=== PATIENT | female | born 1965 | race African-American/Black ===

== ENCOUNTER 2020-09-13 05:50 | Day surgery (SDC) | payer MEDICAID, SELFPAY ==
[~2020-09-13] VITALS: Ht 157.5 cm; Wt 80.7 kg
[2020-09-13] MEDS ORDERED: GLYCOPYRROLATE 0.2 MG/ML VIAL IJ ONE (07:25)
[2020-09-13] MEDS ORDERED: LR 1,000 ML IV.SOLN IV ONE (07:25)
[2020-09-13] MEDS ORDERED: CEFAZOLIN 2 GM IVPB PREMIX 50 ML IV ONE (07:25)
[2020-09-13] MEDS ORDERED: SEVOFLURANE 15 MIN GAS INH ONE (07:25)
[2020-09-13] MEDS ORDERED: MORPHINE SULFATE 10MG/10ML PF AMP EP ONE (07:25)
[2020-09-13] MEDS ORDERED: MIDAZOLAM HCL 5 MG/5 ML VIAL IVP ONE (07:25)
[2020-09-13] MEDS ORDERED: ONDANSETRON HCL 4 MG/2 ML VIAL IVP ONE (07:25)
[2020-09-13] MEDS ORDERED: WATER FOR IRRIGATION,STERILE 1,000 ML IRRIG.SOLN IR ONE (07:25)
[2020-09-13] MEDS ORDERED: PHENYLEPHRINE HCL 10 MG/ML VIAL (NEOSYNEPHRINE) IV ONE (07:25)
[2020-09-13] MEDS ORDERED: BUPIVACAINE /PF 0.75% 10 ML VIAL INJ ONE (07:25)
[2020-09-13] MEDS ORDERED: ROCURONIUM BROMIDE 10 MG/ML (ZEMURON) IV ONE (07:25)
[2020-09-13] MEDS ORDERED: fentaNYL CITRATE/PF 100 MCG/2 ML AMP IVP ONE (07:25)
[2020-09-13] MEDS ORDERED: NS IRRIG SOLN 1000 ML IR ONE (07:25)
[2020-09-13] MEDS ORDERED: OXYCODONE/ACETAMINOPHEN 5-325 TABLET PO PRN ×2 (07:30)
[2020-09-13] MEDS ORDERED: IBUPROFEN 800 MG TABLET PO PRN (07:30)
[2020-09-13] MEDS ORDERED: KETOROLAC TROMETHAMINE 30 MG VIAL IVP PRN (07:30)
[2020-09-13] MEDS ORDERED: HYDROmorphone 2 MG/ML VIAL IVP PRN (07:30)
[2020-09-13] MEDS ORDERED: ONDANSETRON HCL 4 MG/2 ML VIAL IVP PRN (08:15)
[2020-09-13] MEDS ORDERED: DIPHENHYDRAMINE INJ 50 MG/ML VIAL IVP PRN (08:15)
[2020-09-13] MEDS ORDERED: NALOXONE HCL 0.4 MG/ML AMP (NARCAN) IVP PRN ×2 (08:15)
[2020-09-13] MEDS ORDERED: KETOROLAC TROMETHAMINE 60 MG/2 ML VIAL IM PRN (08:15)
[2020-09-13] MEDS ORDERED: NALBUPHINE HCL 10 MG/ML AMP IVP PRN (08:15)
[2020-09-13] MEDS ORDERED: fentaNYL CITRATE/PF 100 MCG/2 ML AMP IVP PRN ×2 (08:15)
[2020-09-13] MEDS ORDERED: MORPHINE SULFATE 10MG/10ML PF AMP SP SCH (08:15)
[2020-09-13] MEDS ORDERED: ONDANSETRON HCL 4 MG/2 ML VIAL ONE (10:51)
[2020-09-13] MEDS: LR 1,000 ML IV SCH ×4 (11:05→20:34)
--- NOTE | 2020-09-13 11:05 | NUR ---
RECEIVED PATIENT FROM OR VIA BED. DROWSY BUT AROUSABLE TO NAME AND ORIENTED. PATIEMT ON ROOM AIR BREATHING EVEN AND UNLABORED, NO SIGN OF DISTRESS. VITALS SIGNS WNL. IV TO LEFT HAND #20 FLOWING LR TO GRAVITY. BIANCHI IN PLACE WITH SECUREMENT DEVICE IN PLACE FLOWING TO GRAVITY. SCD'S IN PLACE. FOUR SURGICAL INCISION TO ABDOMEN WITH STERI STRIPS IN PLACE. NO BLEEDING NOTED. SAFETY PRECAUTIONS IN PLACE. WILL CONTINUE TO MONITOR.
[2020-09-13 13:10] VITALS: BP_SYST 125
[2020-09-13 16:42] VITALS: BP_SYST 139
--- NOTE | 2020-09-13 17:21 | NUR ---
REMOVED 10ML FROM BALLOON AND REMOVED URINARY CATHETER. PROVIDED PERICARE TO PATIENT
--- NOTE | 2020-09-13 19:00 | NUR ---
PATIENT RESTING IN BED WITH EYES CLOSED ON RROM AIR BREATHING EVEN AND UNLABORED NO SIGN OF DISTRESS. EVENING MEAL AT BEDSIDE. IV LEFT HAND #20 LR AT 125ML/HR. SAFETY PRECAUTIONS IN PLACE ALL NEDS MET THROUGH SHIFT. WILL ENDORSE TO NEXT SHIFT.
[2020-09-13 19:45] VITALS: BP_SYST 123
--- NOTE | 2020-09-13 19:45 | NUR ---
INITIAL NOTE AT INITIAL ASSESSMENT, PATIENT IS RESTING IN BED, STABLE, NO SIGNS OF RESPIRATORY DISTRESS. PATIENT VERBALIZES TOLERABLE PAIN, SHE STATES SHE DOES NOT WANT ANY MEDICATION FOR PAIN OR DISCOMFORT AT THIS TIME. PLAN OF CARE FOR THE EVENING IS COMMUNICATED WITH THE PATIENT. PATIENT DEMONSTRATES CORRECT USAGE OF CALL LIGHT AT THIS TIME. BED IS LOCKED, ALARMED, AND AT THE LOWEST LEVEL. FALL SAFETY EDUCATION PROVIDED. FALL, SAFETY, AND RESPIRATORY PRECAUTIONS WILL BE TAKEN THROUGHOUT THE SHIFT.
[2020-09-13] MEDS: DOCUSATE SODIUM 100 MG CAPSULE PO SCH (20:34)
[2020-09-13] MEDS ORDERED: TEMAZEPAM 15 MG CAPSULE PO PRN (21:00)
--- NOTE | 2020-09-13 21:50 | NUR ---
INCENTIVE SPIROMETER TEACHING PATIENT SUCCESSFULLY DEMONSTRATES CORRECT USAGE OF INCENTIVE SPIROMETER AT THIS TIME. PATIENT IS AVERAGING 1500 ML; PATIENT VERBALIZES EXPERIENCING SOME ABDOMINAL PAIN WHEN USING THE INCENTIVE SPIROMETER. PATIENT VERBALIZES KNOWING TO PRACTICE 10 TIMES AN HOUR WHILE AWAKE. AT THIS TIME, PATIENT IS ON NO OXYGEN SUPPLEMENTATION. ROOM AIR OXYGEN SATURATION IS 94% . WILL CONTINUE TO ENCOURAGE USE OF INCENTIVE SPIROMETER EVERY HOUR PATIENT IS AWAKE.
--- NOTE | 2020-09-13 23:00 | NUR ---
FEET DANGLING PATIENT SITTING UPRIGHT ON SIDE OF BED WITH FEET DANGLING AT THIS TIME PER MD RECOMMENDATION. PATIENT VERBALIZES SOME DISCOMFORT, BUT IS TOLERATING WELL- SHE STATES SHE DOES NOT WANT ANY MEDICATION FOR PAIN OR DISCOMFORT.
--- NOTE | 2020-09-14 00:30 | NUR ---
STRAIGHT CATH PATIENT VERBALIZES SHE IS UNABLE TO URINATE DESPITE BEING ON THE BEDSIDE COMMODE. BLADDER SCAN SHOWS AROUND 450 ML URINE IN BLADDER. STRAIGHT CATH DONE AT THIS TIME PER PRN ORDERS. PATIENT TOLERATED WELL WITH AROUND 400 ML OUTPUT. SHE STATES SHE "FEELS MUCH BETTER" AFTER PROCEDURE.
--- NOTE | 2020-09-14 01:30 | NUR ---
PATIENT ASSISTED TO BEDSIDE COMMODE PATIENT ASSISTED TO BEDSIDE COMMODE AT THIS TIME WITH MINIMAL ASSIST, SHE WAS ABLE TO MAKE A SMALL VOID. PATIENT ASSISTED BACK INTO BED FOR COMFORT. CALL LIGHT PLACED WITHIN REACH. BED IS LOCKED, ALARMED, AND AT THE LOWEST LEVEL.
[2020-09-14 01:36] VITALS: BP_SYST 117
[2020-09-14] MEDS: LR 1,000 ML IV SCH ×2 (06:21→15:30)
--- NOTE | 2020-09-14 06:48 | NUR ---
Nutrition Update Adria Scale 18 noted. Pt admitted for Unspecified Ovarian Cyst Left side Diet: Regular BMI: 32.6 kg/m2 RD to follow per nutrition care standards.
[2020-09-14 06:53] LABS: BASOPHILS % (AUTO) 0.4 % (0.0-2.0); EOSINOPHILS % (AUTO) 0.1 % (0.0-4.0); HEMATOCRIT 39.3 % (36-48); HEMOGLOBIN 12.7 g/dL (12.0-16.0); LYMPHOCYTES # (AUTO) 2.6 K/uL (1.0-5.5); LYMPHOCYTES % (AUTO) 21.8 % (20.5-51.5); MEAN CORPUSCULAR HEMOGLOBIN 30 pg (27-31); MEAN CORPUSCULAR HGB CONC 32 % (32-36); MEAN CORPUSCULAR VOLUME 92 fL (79.0-98.0); MONOCYTES # (AUTO) 1.1 K/uL (0.0-1.0); NEUTROPHILS # (AUTO) 8.1 K/uL (1.8-7.7); NEUTROPHILS % (AUTO) 68.7 % (40.0-70.0); PLATELET COUNT (AUTO) 378 K/uL (130-430); RED BLOOD CELL COUNT(AUTO) 4.27 MIL/uL (4.2-6.2); RED CELL DISTRIBUTION WIDTH 15.1 % (9.0-15.0); WHITE BLOOD COUNT (AUTO) 11.7 K/uL (4.8-10.8)
--- NOTE | 2020-09-14 06:56 | NUR ---
CLOSING NOTE PATIENT SLEPT WELL THROUGHOUT THE SHIFT, SHE VERBALIZED TOLERABLE PAIN DURING THE SHIFT WHICH SHE DID NOT WANT ANY PAIN MEDICATION FOR. AT THIS TIME, SHE STATES SHE IS NOT EXPERIENCING PAIN AT THIS TIME. PATIENT IS RESTING IN BED, STABLE, NO SIGNS OF RESPIRATORY DISTRESS. CALL LIGHT IS WITHIN REACH. BED IS LOCKED, ALARMED, AND AT THE LOWEST LEVEL. FALL, SAFETY, AND RESPIRATORY PRECAUTIONS HAVE BEEN TAKEN THROUGHOUT THE SHIFT. WILL CONTINUE TO MONITOR UNTIL SHIFT REPORT IS GIVEN AT BEDSIDE TO AM NURSE.
[2020-09-14 07:54] VITALS: BP_SYST 129
--- NOTE | 2020-09-14 08:00 | NUR ---
Note Pt resting in bed, aware her breakfast tray on bedside table next to her. Pt states she will eat a little later. No SOB/resp distress or severe abdominal pain/discomfort noted at this time. IV in left hand intact and patent infusing IVF's well. 4 abdominal lap sites with steri strip dressings CDI at this time. Call light within reach. Bed in low position and bed alarm on.
[2020-09-14] MEDS: DOCUSATE SODIUM 100 MG CAPSULE PO SCH (08:22)
[2020-09-14] MEDS: SIMETHICONE 80 MG TAB.CHEW PO PRN ×2 (08:23→13:35)
[2020-09-14 12:00] VITALS: BP_SYST 117
--- NOTE | 2020-09-14 12:10 | NUR ---
Note Pt's IVF's were saline locked and pt ambulated in hallway with RN. Pt unable to pass flatus or burp all shift. Pt was given Mylicon PO medications, still no results at this time. Pt ambulated to restroom to void with standby assist. Call light within reach. Bed in low position and no needs noted at this time.
--- NOTE | 2020-09-14 13:45 | NUR ---
Note Dr Escobar was called and discharge order home received. Pt's status was changed from Inpatient to Outpatient surgery status.
[2020-09-14 15:52] VITALS: BP_SYST 121
[2020-09-14] MEDS ORDERED: PERC10 PO (15:57)
[2020-09-14] MEDS ORDERED: IBUP-1971 PO (15:58)
[2020-09-14] MEDS ORDERED: DOCU-144 PO (16:00)
[2020-09-14 16:03] VITALS: BP_SYST 150
--- NOTE | 2020-09-14 17:50 | NUR ---
Note Pt's IV was dc'd at 1700. Site benign and no swelling/redness/bleeding/drainage noted at this time. Pt was given discharge instructions and prescriptions. Pt was checked on q1' and PRN all shift for needs and care. Pt was maintained with safety precautions all shift. Pt's bed in low position and pt ambulated OOB to restroom independently with steady gait. Pt ambulated in room and hallway to pass flatus - minimal passing of flatus. Pt requested to have dinner here before being discharge home. Pt's 4 lap sites with steri strips CDI all shift. Pt stable. Pt sitting up in bed at this time to eat her dinner. Call light within reach.
--- NOTE | 2020-09-14 18:25 | NUR ---
Note Pt dressed in street clothes and packed all her belongings. Pt checked side table and drawers for belongings. Pt stable. Call light within reach. Waiting for her daughter to pick her up.
--- NOTE | 2020-09-14 18:30 | NUR ---
Note Pt off the floor via wheelchair with all her belongings and discharge paperwork/prescription. Pt stable.
== END 2020-09-14 14:00 | disposition home or self-care (01) ==
LOC: SMU 05:50 → SDS 05:50 → UNDOADMOB 10:22 → INTOOBSV 10:22 → SMU 10:22 → SDS 11:34
PROVIDERS: ATTEND Obstetrics & Gynecology
DX: N83.202 Unspecified ovarian cyst, left side (principal); R97.1 Elevated cancer antigen 125 [CA 125]; Z20.828 Contact with and (suspected) exposure to other viral communicable diseases; Z79.899 Other long term (current) drug therapy
CPT/HCPCS: 36415; 58552; 85025; 86886; 86900; 86901; 87081; 88307; C1727; J0690; J2250; J2274; J2370; J2405; J3010; J3490 ×2; J7120 ×2; S2900; U0003; U0005; E0190